=== PATIENT | male | born 1955 | race Caucasian/White ===

== ENCOUNTER 2018-12-28 23:02 | Emergency (ER) | payer BC, OTHER ==
--- NOTE | 2018-12-28 23:43 | EDM.PDOC ---
ED HPI GENERAL MEDICAL PROBLEM - General Chief Complaint: Eye Problems Stated Complaint: LOST VISION IN LEFT EYE Time Seen by Provider: 12/28/18 23:05 Source of Information: Reports: Patient History Limitations: Reports: No Limitations - History of Present Illness INITIAL COMMENTS - FREE TEXT/NARRATIVE: This is a 63-year-old male. Around 5 PM this evening while he was driving he had sudden onset of loss of vision in the left eye and he said he started seeing rainbow colors or effects to his vision and after that cleared up over an hour or so and he has sort of a smoky overlay of his visual field on that left eye. He denies any loss in his visual pierson. He denies any pain in the left eye. He's had no trauma today to his head or to his eye. He comes in this evening for evaluation. He denies any other acute symptoms and has no history of eye problems other than needing eyeglasses. - Related Data Allergies Allergy/AdvReac Type Severity Reaction Status Date / Time No Known Allergies Allergy Verified 12/28/18 23:08 Home Meds: Home Meds Lisinopril [Prinivil] 10 mg PO DAILY 12/28/18 [History] Past Medical History - Past Health History Medical/Surgical History: Denies Medical/Surgical History Cardiovascular History: Reports: Hypertension ED ROS GENERAL - Review of Systems Review Of Systems: See Below Constitutional: Reports: No Symptoms, Fever HEENT: Reports: Glasses, Other (As per history of present illness) Respiratory: Reports: No Symptoms Cardiovascular: Reports: No Symptoms Endocrine: Reports: No Symptoms GI/Abdominal: Reports: No Symptoms : Reports: No Symptoms Musculoskeletal: Reports: No Symptoms Skin: Reports: No Symptoms Neurological: Reports: No Symptoms Psychiatric: Reports: No Symptoms Hematologic/Lymphatic: Reports: No Symptoms ED EXAM GENERAL W FULL EYE - Physical Exam Exam: See Below Exam Limited By: No Limitations General Appearance: Alert, WD/WN, No Apparent Distress Eye Exam: Bilateral Eye: Other (Examination of the left eye does not reveal any gross abnormalities) Visual Acuity (R) 20/: 30 Visual Acuity (L) 20/: 50 With Correction: Yes IOP (R) in mmH IOP (L) in mmH IOP Measure with (Equipment): [employer]open Eyelids: Bilateral: Normal Appearance Cornea Exam: Bilateral: Normal Appearance Extraocular Movements: Bilateral: Intact Pupillary Size: Bilateral: 3 mm Pupillary Reaction: Bilateral: Brisk Anterior Chamber: Left: Normal Appearance Posterior Chamber: Bilateral: Other (I am unable to see the fundi of his left eye and we does have a good red reflex. There is some haziness to the optic cup with a white count really distinguish it is sort of a brownish haze noted to be aqueous vitrius) Ears: Normal External Exam Nose: Normal Inspection Throat/Mouth: Normal Inspection, Normal Lips, Normal Voice, No Airway Compromise Head: Normocephalic Neck: Supple Respiratory/Chest: No Respiratory Distress Back Exam: Full Range of Motion Extremities: Normal Range of Motion Neurological: Alert, Oriented Psychiatric: Normal Affect, Normal Mood Skin Exam: Warm, Dry Course - Re-Assessments/Exams Free Text/Narrative Re-Assessment/Exam: 12/28/18 23:[address] Brendan Moore the flooring mechanic on at [facility]. He is willing to see the patient tomorrow at 11 AM at the [facility] for which I will give the patient the address as well as the phone number. Dr. Moore says he will examine the eye completely and determine what needs to be done. I indicated to the patient what was said and they are willing to go to [place] tomorrow to have his eye evaluated. Departure - Departure Time of Disposition: 23:43 Disposition: Home, Self-Care 01 Condition: Fair Clinical Impression: Change in vision, Blurred vision, left eye - Discharge Information *PRESCRIPTION DRUG MONITORING PROGRAM REVIEWED*: Not Applicable *COPY OF PRESCRIPTION DRUG MONITORING REPORT IN PATIENT KATARINA: Not Applicable Instructions: Retinal Detachment Referrals: Gaviota Poe PA-C [Primary Care Provider] - Brendan Moore MD [Ordering Only Provider] - Additional Instructions: You were to go to the [facility] to see Dr. Brendan Moore tomorrow at 11 AM central standard time in [place] The address is: [address] [place] [address] Make sure you go to the clinic tomorrow to have your left completely evaluated to determine what needs to be done. Sleep at a slight incline to your bed tonight, return to the ER as needed
== END 2018-12-29 00:20 | disposition home or self-care (01) ==
LOC: JD.ED 23:02
DX: H53.8 Other visual disturbances (principal); I10 Essential (primary) hypertension
CPT/HCPCS: 99283; 99284

== ENCOUNTER 2022-05-03 12:01 | Emergency (ER) | payer BC, MEDICARE ==
[2022-05-03] MEDS ORDERED: cloNIDine 0.1 MG Tab PO ONE (12:43)
== END 2022-05-03 14:30 | disposition home or self-care (01) ==
LOC: JD.ED 12:01
DX: I10 Essential (primary) hypertension (principal); Z79.899 Other long term (current) drug therapy; Z79.82 Long term (current) use of aspirin; Z86.16 Personal history of COVID-19
CPT/HCPCS: 36415; 80053; 84484; 85025; 99283; A9270